=== PATIENT | female | born 1965 | race Caucasian/White ===

== ENCOUNTER → 2016-12-01 | Day surgery (SDC) | payer BC ==
[2016-11-17 13:16] VITALS: Ht 167.6 cm; Wt 95.5 kg
[~2016-12-01] VITALS: Ht 167.6 cm; Wt 95.5 kg
[~2016-12-01] MED LIST: ALBU18002 INH; DAYQLIQ PO; EPP3/2 IM; LIDOCAINE HCL 2% 2 ML VIAL (20MG/ML) ONE; MIDAZOLAM HCL 1 MG/ML 2ML VIAL ONE; NAPR-1169 PO; OMEP20TA PO; ONDANSETRON INJ 2 MG/ML 2 ML VIAL ONE; PROPOFOL IV EMULSION 10 MG/ML 20 ML VIAL IV ONE; SODIUM CHLORIDE 0.9% 500ML 500 ML IV ONE
[2016-12-01 14:03] VITALS: TEMP 36.7
--- NOTE | 2016-12-01 14:25 | Endo History and Physical ---
History & Physical Date of Service: Dec 01, 2016. Chief Complaint: screening Referring Physician: Dr. Didier Wagner History of Present Illness 51 yo CF who presents for screening colonoscopy. Past Medical History Anxiety, Depression Past Surgical History Hx Cardiac Surgery: No Hx Internal Defibrillator: No Hx Pacemaker: No Hx Abdominal Surgery: Yes (TUBAL LIGATION, PARTIAL HYSTER) Hx of Implantable Prosthesis: No Hx Post-Op Nausea and Vomiting: No Hx Cancer Surgery: No Hx Thoracic Surgery: No Hx Orthopedic: No Hx Urinary Tract Surgery: No Family History None Social History Smoking Status: Current Every Day Smoker Hx Substance Use: No Hx Alcohol Use: Yes (3 DRINKS/WEEK) Allergies Coded Allergies: BEE STING (Verified Allergy, Unknown, ANAPHYLAXIS-USES EPIPEN, 11/17/16) NO KNOWN DRUG ALLERGIES (Verified Allergy, Unknown, ., 11/17/16) Current Medications Reported Home Medications Medications Dose Route/Sig Max Daily Dose Days Date Category [Dayquil] 2 Tbs PO Q4H PRN 11/17/16 Reported Naprosyn (Naproxen) 500 Mg Tab 500 Mg PO BID PRN 11/17/16 Reported Omeprazole 20 Mg Tab 1 Tab PO DAILY PRN 11/17/16 Reported Proair Respiclick (Albuterol Sulfate) 108 Mcg/Act Aer 2 Puffs INH Q4H PRN 11/17/16 Reported Epipen (Epinephrine) 0.3 Mg/0.3 Ml Inj 0.3 Mg IM UD PRN 11/17/16 Reported Vital Signs Weight (Kilograms): 95.45 Height (Feet): 5 Height (Inches): 6 Date Time Temp Pulse Resp B/P Pulse Ox O2 Delivery O2 Flow Rate FiO2 12/01/16 14:03 36.7 88 20 131/62 96 Room Air Physical Exam General Appearance: WD/WN, no apparent distress Respiratory/Chest: Auscultation: breath sounds normal Cardiovascular: Heart Auscultation: RRR Abdomen: Bowel Sounds: normal Inspection & Palpation: soft, non-distended, no tenderness, guarding & rebound Assessment and Plan Assessment: 51 yo CF who presents for screening colonoscopy. Plan: Proceed with colonoscopy.
--- NOTE | 2016-12-01 15:34 | Discharge Instructions ---
Endoscopy Patient Instructions Date / Procedure(s) Performed Dec 01, 2016. Colonoscopy Allergy Information Coded Allergies: BEE STING (Verified Allergy, Unknown, ANAPHYLAXIS-USES EPIPEN, 11/17/16) NO KNOWN DRUG ALLERGIES (Verified Allergy, Unknown, ., 11/17/16) Discharge Date / Findings Dec 01, 2016. Colon polyps Internal hemorrhoids Medication Instructions OK to resume all medications today as prescribed Reported Home Medications Medications Dose Route/Sig Max Daily Dose Days Date Category [Dayquil] 2 Tbs PO Q4H PRN 11/17/16 Reported Naprosyn (Naproxen) 500 Mg Tab 500 Mg PO BID PRN 11/17/16 Reported Omeprazole 20 Mg Tab 1 Tab PO DAILY PRN 11/17/16 Reported Proair Respiclick (Albuterol Sulfate) 108 Mcg/Act Aer 2 Puffs INH Q4H PRN 11/17/16 Reported Epipen (Epinephrine) 0.3 Mg/0.3 Ml Inj 0.3 Mg IM UD PRN 11/17/16 Reported Provider Instructions Activity Restrictions - No exercising or heavy lifting for 24 hours. - Do not drink alcohol the day of the procedure. - Do not drive a car or operate machinery until the day after the procedure. - Do not make any important decisions or sign important papers in 24 hours after the procedure. Following Day: - Return to full activity which may include returning to work/school. Diet Start your diet with liquids and light foods (jello, soup, juice, toast). Then eat your usual diet if not nauseated. Treatment For Common After Affects For mild abdominal pain, bloating, or excessive gas: - Rest - Eat lightly - Lie on right side Follow-Up Information Follow-up with Dr. Didier Wagner as scheduled Anesthesia Information What You Should Know You have had a procedure that required some medicine to reduce anxiety and discomfort. This treatment is called moderate sedation. After receiving the treatment, you may be sleepy, but you will be able to breathe on your own. The effects of the treatment may last for several hours. Follow these instructions along with Activity/Diet recommendations noted above: * Do NOT do anything where dizziness or clumsiness would be dangerous. * Rest quietly at home today, then you can be up and about tomorrow. * Have a responsible person stay with you the rest of today. * You may have had an I.V. today. If so, you may take the dressing off later today. Recommendations Call your doctor if: * Trouble breathing * Continuous vomiting for more than 24 hours * Temperature above 101 degrees * Severe abdominal pain or bloating * Pain not relieved by pain medicine ordered * There is increased drainage or redness from any incision * A large amount of rectal bleeding greater than 2-3 tablespoons. (If you had a polyp/s removed or have hemorrhoids, a small amount of blood - from the rectum is to be expected.) * You have any unanswered questions or concerns. IN THE EVENT OF A SERIOUS EMERGENCY, GO TO THE NEAREST EMERGENCY ROOM Your discharge instructions were prepared by provider Rambo Amaral. Patient Instructions Signature Page Deniz Dumont Patient (or Guardian) Signature/Date: I have read and understand the instructions given to me by my caregivers. Caregiver/RN/Doctor Signature/Date: The above-named patient and/or guardian has received patient instructions on this date. + Original Patient Signature Page (only) stays with chart. Please make copy for patient.
--- NOTE | 2016-12-01 15:46 | GI REPORT ---
Procedure Date: 12/01/2016 3:07 PM Procedure: Colonoscopy Indications: Screening for colorectal malignant neoplasm Medicines: Monitored Anesthesia Care Complications: No immediate complications. Estimated Blood Loss: Estimated blood loss: none. Procedure: Pre-Anesthesia Assessment: - Prior to the procedure, a History and Physical was performed, and patient medications and allergies were reviewed. The patient's tolerance of previous anesthesia was also reviewed. The risks and benefits of the procedure and the sedation options and risks were discussed with the patient. All questions were answered, and informed consent was obtained. Prior Anticoagulants: The patient has taken no previous anticoagulant or antiplatelet agents. ASA Grade Assessment: II - A patient with mild systemic disease. After reviewing the risks and benefits, the patient was deemed in satisfactory condition to undergo the procedure. After I obtained informed consent, the scope was passed under direct vision. Throughout the procedure, the patient's blood pressure, pulse, and oxygen saturations were monitored continuously. The On-site loaner was introduced through the anus and advanced to the terminal ileum. The colonoscopy was performed without difficulty. The patient tolerated the procedure well. The quality of the bowel preparation was good. The terminal ileum, ileocecal valve, appendiceal orifice, and rectum were photographed. Findings: Two sessile polyps were found in the sigmoid colon. The polyps were 5 to 6 mm in size. These polyps were removed with a hot snare. Resection was complete, but the polyp tissue was only partially retrieved. Multiple small-mouthed diverticula were found in the sigmoid colon. Non-bleeding internal hemorrhoids were found during retroflexion. The hemorrhoids were small. Impression: - Two 5 to 6 mm polyps in the sigmoid colon, removed with a hot snare. Complete resection. Partial retrieval. - Diverticulosis in the sigmoid colon. - Non-bleeding internal hemorrhoids. Recommendation: - Resume previous diet. - Continue present medications. - Repeat colonoscopy for surveillance based on pathology results. - Return to primary care physician as previously scheduled. Rambo Amaral, DO 12/01/2016 3:46:08 PM This report has been signed electronically. Note Initiated On: 12/01/2016 3:07 PM I attest to the content of the Intraoperative Record and orders documented therein, exceptions below
--- NOTE | 2016-12-01 15:48 | Anesthesiology Progress Note ---
Anesthesia Post Op Note Date & Time Dec 01, 2016 at 15:48 Vital Signs Pain Intensity: 0 Vital Signs Past 12 Hours Date Time Temp Pulse Resp B/P Pulse Ox O2 Delivery O2 Flow Rate FiO2 12/01/16 15:37 81 16 114/66 97 Room Air 12/01/16 14:03 36.7 88 20 131/62 96 Room Air Notes Mental Status: alert / awake / arousable, participated in evaluation Pt Amnestic to Procedure: Yes Nausea / Vomiting: adequately controlled Pain: adequately controlled Airway Patency, RR, SpO2: stable & adequate BP & HR: stable & adequate Hydration State: stable & adequate Anesthetic Complications: no major complications apparent
[2016-12-01 16:11] VITALS: BP 129/68; PULSE 65; O2SAT 100
== END | disposition home or self-care (01) ==
LOC: C.GI 13:47
PROVIDERS: ATTEND Internal Medicine
DX: Z12.11 Encounter for screening for malignant neoplasm of colon (principal); D12.5 Benign neoplasm of sigmoid colon; K57.30 Diverticulosis of large intestine without perforation or abscess without bleeding; K64.8 Other hemorrhoids; F41.8 Other specified anxiety disorders; F17.210 Nicotine dependence, cigarettes, uncomplicated

== ENCOUNTER → 2017-10-06 | Outpatient (CLI) | payer OTHER ==
[~2017-10-06] MED LIST changes: -LIDOCAINE HCL 2% 2 ML VIAL (20MG/ML) ONE; -MIDAZOLAM HCL 1 MG/ML 2ML VIAL ONE; -ONDANSETRON INJ 2 MG/ML 2 ML VIAL ONE; -PROPOFOL IV EMULSION 10 MG/ML 20 ML VIAL IV ONE; -SODIUM CHLORIDE 0.9% 500ML 500 ML IV ONE
--- NOTE | 2017-10-06 10:07 | DIAGNOSTIC IMAGING REPORT ---
CHEST 2 VIEWS ROUTINE HISTORY: R05 Cough COMPARISON: Chest 04/21/2016. FINDINGS: The heart is stable in size. Linear scarlike density within the right middle lobe, unchanged. No new focal lung consolidations to suggest pneumonia. No pleural effusions. No pneumothorax. IMPRESSION: No significant change compared to the prior study. No acute process. Electronically signed by: Vasyl Ocampo M.D. 10/06/2017 10:06 AM Dictated Date/Time: 10/06/2017 10:05 AM
== END | disposition home or self-care (01) ==
LOC: C.RADBC 09:46
PROVIDERS: ATTEND Nurse Practitioner Adult Health
DX: R05 Cough (principal)

== ENCOUNTER → 2017-11-17 | Outpatient (CLI) | payer OTHER ==
--- NOTE | 2017-11-19 08:01 | MAMMOGRAPHY REPORT ---
BILATERAL DIGITAL SCREENING MAMMOGRAM TOMOSYNTHESIS WITH CAD: 11/17/2017 CLINICAL HISTORY: Routine screening. Patient has no complaints. TECHNIQUE: Breast tomosynthesis in addition to standard 2D mammography was performed. Current study was also evaluated with a Computer Aided Detection (CAD) system. COMPARISON: Comparison is made to exams dated: 03/06/2015 ultrasound, 03/06/2015 mammogram, 03/13/2011 ultrasound, 03/13/2011 mammogram, 03/11/2011 mammogram - [facility], and 01/29/2009. BREAST COMPOSITION: The tissue of both breasts is heterogeneously dense, which may obscure small mas ses. Involutional changes compared to more remote prior mammograms. FINDINGS: There are stable benign circumscribed masses in the left breast. No new suspicious mass, a rchitectural distortion or cluster of microcalcifications is seen. IMPRESSION: ACR BI-RADS CATEGORY 1: NEGATIVE There is no mammographic evidence of malignancy. A 1 year screening mammogram is recommended. The pa tient will receive written notification of the results. Approximately 10% of breast cancers are not detected with mammography. A negative mammographic report should not delay biopsy if a clinically suggestive mass is present. Bibi Tai M.D. ay/:11/17/2017 15:09:26 Land Commissioner: Deyanira Weinstein, [facility] letter sent: Normal 1/2 BI-RADS Code: ACR BI-RADS Category 1: Negative
== END | disposition home or self-care (01) ==
LOC: C.MAMM 09:11
PROVIDERS: ATTEND Internal Medicine
DX: Z12.31 Encounter for screening mammogram for malignant neoplasm of breast (principal)

== ENCOUNTER → 2017-12-29 | Outpatient (CLI) | payer OTHER ==
--- NOTE | 2017-12-29 13:42 | DIAGNOSTIC IMAGING REPORT ---
SOFT TISS HEAD/NECK-THYROID CLINICAL HISTORY: 52 years-old Female presenting with ENLARGED THYROID. TECHNIQUE: Real-time grayscale and color Doppler ultrasound imaging of the thyroid and base of the neck was performed. COMPARISON: None. FINDINGS: Right lobe: Normal echogenicity and echotexture. The right lobe of the thyroid measures 4.9 x 1.8 x 1.8 cm. No parenchymal hyperemia. No nodules. Left lobe: Normal echogenicity and echotexture. The left lobe of the thyroid measures 4.8 x 1.6 x 1.5 cm. No parenchymal hyperemia. Index nodule(s) enumerated below: 1. 4 x 4 x 5 mm hypoechoic ill-defined nodule in the interpolar region. This nodule may contain punctate microcalcifications. (High suspicion pattern) Isthmus: The isthmus measures 3 mm in thickness. No parenchymal hyperemia. No nodules. IMPRESSION: Suspicious nodule in the left lobe of the thyroid is subcentimeter. Biopsy is not recommended at this time per the [place] [employer] criteria for the assessment of thyroid nodules. Continued ultrasound follow-up recommended. Electronically signed by: Didier Galvan M.D. 12/29/2017 1:41 PM Dictated Date/Time: 12/29/2017 1:38 PM
== END | disposition home or self-care (01) ==
LOC: C.ULTR 13:12
PROVIDERS: ATTEND Nurse Practitioner Adult Health
DX: E04.9 Nontoxic goiter, unspecified (principal)

== ENCOUNTER → 2018-02-01 | Day surgery (SDC) | payer OTHER ==
[2018-01-27 14:18] VITALS: Ht 167.6 cm; Wt 96.8 kg
[~2018-02-01] VITALS: Ht 167.6 cm; Wt 96.8 kg
[~2018-02-01] MED LIST changes: -DAYQLIQ PO; +FLUT50SP45 NAE; +LIDOCAINE HCL 2% 2 ML VIAL (20MG/ML) ONE; -NAPR-1169 PO; +PROPOFOL IV EMULSION 10 MG/ML 20 ML VIAL ONE; +SODIUM CHLORIDE 0.9% 500ML 500 ML IV ONE
--- NOTE | 2018-02-01 16:02 | Endo History and Physical ---
History & Physical Date of Service: February 01, 2018. Chief Complaint: Dysphagia Referring Physician: Bibi Hong History of Present Illness 52 yo CF who presents for EGD secondary to dysphagia. Past Medical History Anxiety, Depression Past Surgical History Hx Cardiac Surgery: No Hx Internal Defibrillator: No Hx Pacemaker: No Hx Abdominal Surgery: Yes (TUBAL LIGATION, PARTIAL HYSTER) Hx of Implantable Prosthesis: No Hx Post-Op Nausea and Vomiting: No Hx Cancer Surgery: No Hx Thoracic Surgery: No Hx Orthopedic: No Hx Urinary Tract Surgery: No Family History None Social History Smoking Status: Current Every Day Smoker Hx Substance Use: No Hx Alcohol Use: No Allergies Coded Allergies: BEE STING (Verified Allergy, Unknown, ANAPHYLAXIS-USES EPIPEN, 02/01/18) NO KNOWN DRUG ALLERGIES (Verified Allergy, Unknown, ., 02/01/18) Current Medications Reported Home Medications Medications Dose Route/Sig Max Daily Dose Days Date Category Allergy Nasal [place] 24 Ho (Fluticasone Propionate (Nasal)) 50 Mcg/Act Spr 1 [place] NATE DAILY 01/27/18 Reported Omeprazole 20 Mg Tab 1 Tab PO DAILY PRN 11/17/16 Reported Proair Respiclick (Albuterol Sulfate) 108 Mcg/Act Aer 2 Puffs INH Q4H PRN 11/17/16 Reported Epipen (Epinephrine) 0.3 Mg/0.3 Ml Inj 0.3 Mg IM UD PRN 11/17/16 Reported Vital Signs Weight (Kilograms): 96.82 Height (Feet): 5 Height (Inches): 6 Date Time Temp Pulse Resp B/P (MAP) Pulse Ox O2 Delivery O2 Flow Rate FiO2 02/01/18 15:10 36.8 74 20 146/69 (94) 94 Room Air Physical Exam General Appearance: WD/WN, no apparent distress Respiratory/Chest: Auscultation: breath sounds normal Cardiovascular: Heart Auscultation: RRR Abdomen: Bowel Sounds: normal Inspection & Palpation: soft, non-distended, no tenderness, guarding & rebound Assessment and Plan Assessment: 52 yo CF who presents for EGD secondary to dysphagia. Plan: Proceed with EGD.
--- NOTE | 2018-02-01 16:22 | GI REPORT ---
Patient Name: Deniz Dumont Procedure Date: 02/01/2018 4:05 PM Date of : 1965 Admit Type: Outpatient Age: 52 Gender: Female Attending MD: Rambo Amaral DO Procedure: Upper GI endoscopy Providers: Rambo Amaral DO Referring MD: Bibi Hong Indications: Dysphagia Medicines: Monitored Anesthesia Care Complications: No immediate complications. Estimated Blood Loss: Estimated blood loss: none. Procedure: Pre-Anesthesia Assessment: - Prior to the procedure, a History and Physical was performed, and patient medications and allergies were reviewed. The patient's tolerance of previous anesthesia was also reviewed. The risks and benefits of the procedure and the sedation options and risks were discussed with the patient. All questions were answered, and informed consent was obtained. Prior Anticoagulants: The patient has taken no previous anticoagulant or antiplatelet agents. ASA Grade Assessment: II - A patient with mild systemic disease. After reviewing the risks and benefits, the patient was deemed in satisfactory condition to undergo the procedure. After obtaining informed consent, the endoscope was passed under direct vision. Throughout the procedure, the patient's blood pressure, pulse, and oxygen saturations were monitored continuously. The scope was introduced through the mouth, and advanced to the second part of duodenum. The upper GI endoscopy was accomplished without difficulty. The patient tolerated the procedure well. Findings: The examined esophagus was normal. Biopsies were taken with a cold forceps for histology. Multiple biopsies were obtained in the middle third of the esophagus with cold forceps for histology. The stomach was normal. The examined duodenum was normal. Impression: - Normal esophagus. Biopsied. - Normal stomach. - Normal examined duodenum. - Multiple biopsies were obtained in the middle third of the esophagus. Recommendation: - Resume previous diet. - Continue present medications. - Await pathology results. - Return to primary care physician as previously scheduled. Rambo Amaral DO 02/01/2018 4:22:03 PM This report has been signed electronically. Note Initiated On: 02/01/2018 4:05 PM Number of Addenda: 0 I attest to the content of the Intraoperative Record and orders documented therein, exceptions below {[id number]}
--- NOTE | 2018-02-01 16:24 | Discharge Instructions ---
Endoscopy Patient Instructions Date / Procedure(s) Performed February 01, 2018. EGD Allergy Information Coded Allergies: BEE STING (Verified Allergy, Unknown, ANAPHYLAXIS-USES EPIPEN, 02/01/18) NO KNOWN DRUG ALLERGIES (Verified Allergy, Unknown, ., 02/01/18) Discharge Date / Findings February 01, 2018. Mid-esophageal biopsies Medication Instructions OK to resume all medications today as prescribed Reported Home Medications Medications Dose Route/Sig Max Daily Dose Days Date Category Allergy Nasal [place] 24 Ho (Fluticasone Propionate (Nasal)) 50 Mcg/Act Spr 1 [place] NAET DAILY 01/27/18 Reported Omeprazole 20 Mg Tab 1 Tab PO DAILY PRN 11/17/16 Reported Proair Respiclick (Albuterol Sulfate) 108 Mcg/Act Aer 2 Puffs INH Q4H PRN 11/17/16 Reported Epipen (Epinephrine) 0.3 Mg/0.3 Ml Inj 0.3 Mg IM UD PRN 11/17/16 Reported Provider Instructions Activity Restrictions - No exercising or heavy lifting for 24 hours. - Do not drink alcohol the day of the procedure. - Do not drive a car or operate machinery until the day after the procedure. - Do not make any important decisions or sign important papers in 24 hours after the procedure. Following Day: - Return to full activity which may include returning to work/school. Diet Start your diet with liquids and light foods (jello, soup, juice, toast). Then eat your usual diet if not nauseated. Treatment For Common After Affects For mild abdominal pain, bloating, or excessive gas: - Rest - Eat lightly - Lie on right side Follow-Up Information Follow-up with Bibi Hong as scheduled Anesthesia Information What You Should Know You have had a procedure that required some medicine to reduce anxiety and discomfort. This treatment is called moderate sedation. After receiving the treatment, you may be sleepy, but you will be able to breathe on your own. The effects of the treatment may last for several hours. Follow these instructions along with Activity/Diet recommendations noted above: * Do NOT do anything where dizziness or clumsiness would be dangerous. * Rest quietly at home today, then you can be up and about tomorrow. * Have a responsible person stay with you the rest of today. * You may have had an I.V. today. If so, you may take the dressing off later today. Recommendations Call your doctor if: * Trouble breathing * Continuous vomiting for more than 24 hours * Temperature above 101 degrees * Severe abdominal pain or bloating * Pain not relieved by pain medicine ordered * There is increased drainage or redness from any incision * A large amount of rectal bleeding greater than 2-3 tablespoons. (If you had a polyp/s removed or have hemorrhoids, a small amount of blood - from the rectum is to be expected.) * You have any unanswered questions or concerns. IN THE EVENT OF A SERIOUS EMERGENCY, GO TO THE NEAREST EMERGENCY ROOM Your discharge instructions were prepared by provider Rambo Amaral. Patient Instructions Signature Page Deniz Dumont Patient (or Guardian) Signature/Date: I have read and understand the instructions given to me by my caregivers. Caregiver/RN/Doctor Signature/Date: The above-named patient and/or guardian has received patient instructions on this date. + Original Patient Signature Page (only) stays with chart. Please make copy for patient.
--- NOTE | 2018-02-01 16:51 | Anesthesiology Progress Note ---
Anesthesia Post Op Note Date & Time February 01, 2018 at 16:51 Vital Signs Pain Intensity: 0 Vital Signs Past 12 Hours Date Time Temp Pulse Resp B/P (MAP) Pulse Ox O2 Delivery O2 Flow Rate FiO2 02/01/18 16:40 69 18 137/89 (105) 96 Room Air 02/01/18 16:22 83 16 121/82 (95) 95 Room Air 02/01/18 15:10 36.8 74 20 146/69 (94) 94 Room Air Notes Mental Status: alert / awake / arousable, participated in evaluation Pt Amnestic to Procedure: Yes Nausea / Vomiting: adequately controlled Pain: adequately controlled Airway Patency, RR, SpO2: stable & adequate BP & HR: stable & adequate Hydration State: stable & adequate Anesthetic Complications: no major complications apparent
[2018-02-01 16:52] VITALS: BP 127/87; PULSE 70; O2SAT 97
== END | disposition home or self-care (01) ==
LOC: C.GI 14:45
PROVIDERS: ATTEND Internal Medicine
DX: R13.10 Dysphagia, unspecified (principal); Z98.51 Tubal ligation status; Z90.710 Acquired absence of both cervix and uterus; F17.200 Nicotine dependence, unspecified, uncomplicated; Z91.030 Bee allergy status